=== PATIENT | female | born 1990 | race Caucasian/White ===

== ENCOUNTER 2018-08-18 15:56 | Emergency (ER) | payer MEDICAID ==
[2018-08-18 16:10] VITALS: BP 146/97
--- NOTE | 2018-08-18 17:28 | ED Physician Documentation ---
PD HPI HEENT - Stated complaint Stated Complaint: LT EAR/THROAT PX - Chief complaint Chief Complaint: General - History obtained from History obtained from: Patient - History of Present Illness Timing - onset: How many days ago (2-3) Timing - duration: Days (2-3) Timing - details: Gradual onset Location: Left ear. No: Sinuses, Nose, Throat Worsens: No: Swalllowing Associated symptoms: Swollen nodes (left anterior neck). No: Fever, Facial swelling Similar symptoms before: Diagnosis (has had ear infections as adult several times. history of sinus/allergies.) Review of Systems Constitutional: denies: Fever, Myalgias Ears: reports: Ear pain. denies: Loss of hearing, Drainage/discharge Nose: reports: Sinus pressure / pain. denies: Rhinorrhea / runny nose, Congestion Throat: denies: Sore throat Respiratory: denies: Dyspnea, Cough Skin: denies: Rash, Lesions PD PAST MEDICAL HISTORY - Past Medical History Cardiovascular: Hypertension Respiratory: None Neuro: None Endocrine/Autoimmune: None - Present Medications Home Medications: Ambulatory Orders Medication Instructions Recorded Confirmed Amoxicillin 500 mg PO TID #21 capsule 08/18/18 Losartan/Hydrochlorothiazide 1 each PO DAILY #30 tablet 08/18/18 [Losartan-Hctz 50-12.5 mg Tab] Naproxen 500 mg PO BID #20 tablet 08/18/18 - Allergies Allergies/Adverse Reactions: Allergies Allergy/AdvReac Type Severity Reaction Status Date / Time No Known Drug Allergies Allergy Verified 08/18/18 16:10 PD ED PE NORMAL - Vitals Vital signs reviewed: Yes - General General: Alert and oriented X 3, No acute distress, Well developed/nourished - HEENT HEENT: Pharynx benign. No: Ears normal (right is normal; left with redness and fluid behind eardrum. Canal appears okay. ) - Neck Neck: Supple, no meningeal sign, Other (left anterior tender adenopathy. ) - Cardiac Cardiac: RRR, No murmur - Respiratory Respiratory: Clear bilaterally - Derm Derm: Normal color, Warm and dry - Neuro Neuro: Alert and oriented X 3, No motor deficit, Normal speech Results - Vitals Vitals: Vital Signs - 24 hr 08/18/18 16:08 Temperature 36.8 C Heart Rate 97 Respiratory 18 Rate Blood Pressure 146/97 H O2 Saturation 99 Oxygen O2 Source Room air PD MEDICAL DECISION MAKING - ED course Complexity details: considered differential (has history of HTN and is out of meds. Has symptoms c/w ear infection and some redness of left TM with adenopathy. TM not dramatically red, but given the adenopathy, is more convin cing. ), d/w patient Departure - Departure Disposition: 01 Home, Self Care Clinical Impression: Acute cervical adenitis Otitis media Qualifiers: Otitis media type: suppurative Chronicity: acute Laterality: left Recurrence: non-recurrent Spontaneous tympanic membrane rupture: without spontaneous rupture Qualified Code(s): H66.002 - Acute suppurative otitis media without spontaneous rupture of ear drum, left ear Hypertension Qualifiers: Hypertension type: unspecified Qualified Code(s): I10 - Essential (primary) hypertension Condition: Stable Record reviewed to determine appropriate education?: Yes Instructions: ED Otitis Media Acute Adult Prescriptions: Amoxicillin 500 mg PO TID #21 capsule Losartan/Hydrochlorothiazide [Losartan-Hctz 50-12.5 mg Tab] 1 each PO DAILY #30 tablet Naproxen 500 mg PO BID #20 tablet Comments: Amoxicillin 3 times a day for a week for the infection. Naproxen anti- inflammatory twice daily for pain and inflammation. Add Tylenol if needed. Resume your losartan/HCTZ blood pressure medicine daily. Follow-up with your primary care if not improved over the next several days or so. Discharge Date/Time: 08/18/18 18:01
[2018-08-18] MEDS ORDERED: IBUPROFEN 600 MG TABLET PO STA (17:51)
[2018-08-18] MEDS ORDERED: AMOXICILLIN 250 MG CAPSULE PO STA (17:51)
== END 2018-08-18 18:01 | disposition home or self-care (01) ==
LOC: ED 15:56
DX: I88.9 Nonspecific lymphadenitis, unspecified (principal); H66.002 Acute suppurative otitis media without spontaneous rupture of ear drum, left ear; I10 Essential (primary) hypertension
CPT/HCPCS: 99283; A9270